=== PATIENT | female | born 1960 | race Caucasian/White ===

== ENCOUNTER 2018-01-29 05:42 | Day surgery (SDC) | payer OTHER, BC ==
[~2018-01-29] VITALS: Ht 149.9 cm; Wt 75.3 kg
[~2018-01-29 05:42] MED LIST: ALLEGRA-D 241 TABLET PO; ALLERGY RELIE15.8 ML BOTH NARES; ANTIVERT25 MG PO; ASTEPRO 0.15%30 ML BOTH NARES; COMBIVENT RESPIM4 GM IH; CYANOCOBALAM1000 MCG PO; DIOVAN40 MG PO; DUONEB 2.5-0.5 M3 ML AEROSOL; DYAZIDE, MA1 CAPSULE PO; K-DUR20 MEQ PO; NORVASC10 MG PO; PRILOSEC20 MG PO; SINGULAIR10 MG PO; VALIUM5 MG PO; XANAX0.25 MG PO
[2018-01-29 06:17] VITALS: BP 126/78
[2018-01-29 10:55] VITALS: BP 139/65
[2018-01-29 12:16] VITALS: BP 111/68
== END 2018-01-29 12:25 | disposition home or self-care (01) ==
LOC: SDC 05:42
PROC: 0RRK0J6 Replacement of Left Shoulder Joint with Synthetic Substitute, Humeral Surface, Open Approach (ICD-10-PCS; principal; 2018-01-29)
DX: M19.012 Primary osteoarthritis, left shoulder (principal); K50.90 Crohn's disease, unspecified, without complications; J45.909 Unspecified asthma, uncomplicated; I10 Essential (primary) hypertension; G47.30 Sleep apnea, unspecified; Z88.1 Allergy status to other antibiotic agents; Z88.8 Allergy status to other drugs, medicaments and biological substances
CPT/HCPCS: C1776; C9359; J1100; J1885; J2250; J2405; J2710; J2795; J3010; J7050; J7643